=== PATIENT | male | born 1955 | race Caucasian/White ===

== ENCOUNTER → 2016-03-19 | Outpatient (CLI) | payer OTHER ==
--- NOTE | 2016-03-19 16:14 | DX ---
Bilateral hand series 2 views each History: Hand pain. Rheumatoid arthritis versus osteoarthritis. Findings: Left hand: There is no significant joint space narrowing. Tiny subchondral cyst is suspected at the b ase of the third distal phalanx and middle phalanx. Small subchondral cysts are also seen involving t he capitate and navicular. No dominant erosions are seen or hypertrophic osteophytes. Mineralization is normal. Soft tissues are unremarkable. Right hand: There is no significant joint space narrowing. A few subchondral cysts are seen associate d with the capitate, navicular, and lunate. There is no evidence of subchondral cysts or erosions oth erwise about the right hand. There are no hypertrophic osteophytes. Mineralization is normal. Soft ti ssues are unremarkable. Impression: 1. No significant underlying osteoarthritis or rheumatoid arthritis identified. 2. Subchondral cysts associated with the carpal bones as detailed above without underlying degenerati ve joint disease. Clinical correlation recommended. These could just represent incidental bone cysts.
== END ==
LOC: BMCIMAGING 15:30
PROVIDERS: ATTEND Internal Medicine Rheumatology
DX: M79.641 Pain in right hand (principal)

== ENCOUNTER → 2016-06-04 | Outpatient (CLI) | payer OTHER | LOC: CIMAGING 08:52 | PROVIDERS: ATTEND Internal Medicine | DX: M50.320 Other cervical disc degeneration, mid-cervical region, unspecified level (principal); M50.323 Other cervical disc degeneration at C6-C7 level; M89.38 Hypertrophy of bone, other site | CPT/HCPCS: 72050-PO ==